=== PATIENT | female | born 1940 | race African-American/Black ===

== ENCOUNTER 2022-07-09 15:11 | Emergency (ER) | payer MEDICARE, MEDICAID ==
[~2022-07-09] VITALS: Ht 167.6 cm; Wt 89.0 kg
[~2022-07-09 15:11] MED LIST: HYDR-4346 MT; NAPR-677 MT
[2022-07-09 15:22] VITALS: BP 164/84
[2022-07-09 17:20] LABS: CLARITY URINE CLOUDY (CLEAR); COLOR URINE YELLOW (YELLOW); KETONES URINE TRACE (NEGATIVE); LEUKOCYTE ESTERASE URINE 3+ (NEGATIVE); NITRITE URINE POSITIVE (NEGATIVE); OCCULT BLOOD URINE 2+ (NEGATIVE); PH URINE 5.5 (4.5-8.0); PROTEIN URINE NEGATIVE (NEGATIVE); SPECIFIC GRAVITY URINE 1.015 (1.005-1.030); UROBILINOGEN URINE 0.2 E.U./dL (0.2-1.0)
[2022-07-09] MEDS ORDERED: PYR200 MT (17:24)
[2022-07-09] MEDS ORDERED: NITR-87 MT (17:24)
[2022-07-09] MEDS ORDERED: BECL10.62 INH (17:24)
== END 2022-07-09 17:37 | disposition home or self-care (01) ==
LOC: ER 15:11
DX: J20.9 Acute bronchitis, unspecified (principal); N39.0 Urinary tract infection, site not specified; I10 Essential (primary) hypertension
CPT/HCPCS: 71045; 81003; 87077; 87186; 99284